=== PATIENT | female | born 1990 | race Caucasian/White ===

== ENCOUNTER 2021-05-27 22:03 | Emergency (ER) | payer OTHER ==
[~2021-05-27 22:03] MED LIST: BENTYL 20MG TAB20 MG PO; PHENERGAN 25 MG25 M1 PO
[2021-05-27 23:12] LABS: HEMOGLOBIN 14.2 gm/dl (12.3-15.3); RED BLOOD COUNT 4.81 M/UL (4.00-5.10); WHITE BLOOD COUNT 13.5 K/UL (4.5-11.0)
[2021-05-27 23:30] LABS: BUN/CREATININE RATIO 12 (0-10)
[2021-05-28] MEDS ORDERED: PEPCID20 MG PO (02:51)
[2021-05-28] MEDS ORDERED: MEDROL DOSEPAK 24 MG PO (02:51)
[2021-05-28] MEDS ORDERED: BENADRYL25 MG PO (02:51)
== END 2021-05-28 03:30 | disposition home or self-care (01) ==
LOC: ER1 22:03
PROVIDERS: Physician Assistant Medical
DX: T78.40XA Allergy, unspecified, initial encounter (principal); L50.0 Allergic urticaria; Z90.89 Acquired absence of other organs; F17.200 Nicotine dependence, unspecified, uncomplicated
CPT/HCPCS: 71045; 80053; 81001; 84439; 84443; 84484; 84703; 85025; 93005; 96374; 96375; 96376; 99284; J1100; J1200; J2405; J7030